=== PATIENT | female | born 1975 | race Caucasian/White ===

== ENCOUNTER 2022-08-18 06:53 | Emergency (ER) | payer MEDICARE, OTHER ==
[~2022-08-18] VITALS: Ht 165.1 cm; Wt 74.8 kg
--- NOTE | 2022-08-18 07:00 | NUR ---
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
[2022-08-18] MEDS ORDERED: LEVETIRACETAM (500MG) 500 MG in IV NS 0.9% 100 ML IV ONE (07:30)
[2022-08-18 07:31] LABS: BASOPHILS % (AUTO) 0.4 % (0.0-2.0); EOSINOPHILS % (AUTO) 0.6 % (0.0-6.0); HEMATOCRIT 40 % (33-45); HEMOGLOBIN 13.2 g/dL (11.5-14.8); LYMPHOCYTES # (AUTO) 2.4 K/uL (0.8-4.8); LYMPHOCYTES % (AUTO) 32.3 % (20.0-44.0); MEAN CORPUSCULAR HGB CONC 33 g/dl (31.0-36.0); MEAN CORPUSCULAR VOLUME 102 fL (82-100); MONOCYTES # (AUTO) 0.8 K/uL (0.1-1.30); MONOCYTES % (AUTO) 11.4 % (2.0-12.0); NEUTROPHILS % (AUTO) 55.3 % (43.0-81.0); PLATELET COUNT (AUTO) 207 K/uL (150-450); RED BLOOD CELL COUNT(AUTO) 3.92 MIL/uL (4.0-5.2); WHITE BLOOD COUNT (AUTO) 7.3 K/uL (4.3-11.0)
[2022-08-18 08:34] LABS: CARBON DIOXIDE 26 mmol/L (21-32); CHLORIDE 97 mmol/L (98-107); CREATININE 0.9 mg/dL (0.6-1.3); GLUCOSE 132 mg/dL (74-106); POTASSIUM 3.3 mmol/L (3.5-5.1); SODIUM SERUM 133 mmol/L (136-145); UREA NITROGEN, BLOOD 4 mg/dL (7-18)
--- NOTE | 2022-08-18 08:45 | NUR ---
phleb able to collect blood specimen from pt
[2022-08-18 08:59] LABS: ALANINE AMINOTRANSFERASE 23 U/L (12-78); ALBUMIN 3.7 g/dL (3.4-5.0); ALKALINE PHOSPHATASE 56 U/L (46-116); ASPARTATE AMINOTRANSFERASE 39 U/L (15-37); BILIRUBIN,DIRECT 0.2 mg/dL (0.0-0.2); BILIRUBIN,TOTAL 0.6 mg/dL (0.2-1.0); TOTAL PROTEIN, SERUM 7.8 g/dL (6.4-8.2)
--- NOTE | 2022-08-18 09:35 | NUR ---
CALLED [facility] FOR TRANSPORT ETA 45-60 MINS PER KIMBER.
[2022-08-18 09:53] LABS: ALCOHOL, BLOOD < 3 mg/dL (0-0)
--- NOTE | 2022-08-18 10:12 | NUR ---
IV removed. Catheter intact and site benign. Pressure and 4x4 applied to site. No bleeding noted. Patient discharged to outside facility in stable condition. Report called to [facility] Andrea Shaffer ahead of transfer. Written and verbal after care instructions given. Patient verbalizes understanding of instruction.
[2022-08-18 10:13] VITALS: BP 136/79
--- NOTE | 2022-08-18 10:13 | NUR ---
EMT AT BEDSIDE TO [facility]
--- NOTE | 2022-08-18 10:20 | NUR ---
pt report given to perico lundberg at [facility]
--- NOTE | 2022-08-18 10:24 | NUR ---
Patient discharged to [facility] via [facility] in stable condition accompanied by 2 data entry manager. Written and verbal after care instructions given. Patient verbalizes understanding of instruction.
== END 2022-08-18 10:15 ==
LOC: ER 06:56
DX: R56.9 Unspecified convulsions (principal); I48.91 Unspecified atrial fibrillation; Z88.2 Allergy status to sulfonamides; Z88.8 Allergy status to other drugs, medicaments and biological substances
CPT/HCPCS: 99285; 96365; 93005; 71045; 70450; 85025; 80048; 80076; 36415; 85730; 80320; J7030; J1953; G0480